=== PATIENT | male | born 1990 | race African-American/Black ===

== ENCOUNTER 2023-11-07 11:21 | Emergency (ER) | payer MEDICAID ==
[~2023-11-07] VITALS: Ht 188 cm; Wt 72.6 kg
[2023-11-07 11:46] VITALS: O2SAT 100
[2023-11-07] MEDS ORDERED: DEXAMETHASONE 0.5MG/5ML ORAL SYR PO ONE (12:30)
[2023-11-07] MEDS ORDERED: FLUT9.9S BOTHNSTRLS (12:38)
[2023-11-07] MEDS: DEXAMETHASONE 10 MG/ML VIAL PO NR (12:56)
[2023-11-07 12:57] VITALS: BP 106/71; PULSE 71; RESP 20; TEMP 98.4
== END 2023-11-07 13:09 | disposition home or self-care (01) ==
LOC: ER 11:21
DX: J30.89 Other allergic rhinitis (principal); Z88.0 Allergy status to penicillin
CPT/HCPCS: 99282; J1100; Z7610; J8540